=== PATIENT | male | born 1965 | race American Indian/Alaskan Native ===

== ENCOUNTER 2021-03-01 06:59 | Day surgery (SDC) | payer BC, MEDICARE ==
[2021-02-25 10:47] LABS: Hematocrit 41.2 % (35.5-45.6); Hemoglobin 13.2 gm/dl (11.8-15.2); Mean Corpuscular HGB Conc 32 % (32-34); Mean Corpuscular Volume 84 fl (84-94); Platelet Count 172 K/mm3 (140-440); Red Blood Count 4.91 M/mm3 (3.65-5.03); Red Cell Distribution Width 14.1 % (13.2-15.2)
[2021-02-25 11:07] LABS: Alanine Aminotransferase 10 units/L (7-56); Albumin 4.5 g/dL (3.9-5); Blood Urea Nitrogen 19 mg/dL (9-20); Calcium 9.3 mg/dL (8.4-10.2); Hemolysis Index 12
[2021-02-25 11:08] LABS: BUN/Creatinine Ratio 32
[~2021-03-01 06:59] MED LIST: LACTATED RINGERS 1,000 ML IV SCH; LIDOCAINE MPF (2%) 20 MG/1 ML VIAL 5 ML ONE; MIDAZOLAM 2 MG/2 ML INJ IV NR; ONDANSETRON 4 MG/2 ML INJ ONE; fentaNYL 100 MCG/2 ML INJ ONE; propofoL 200 MG/20 ML VIAL IV ONE
[2021-03-01] MEDS ORDERED: HYDROcodone/ACETAMINOPHEN 5-325 MG TAB PO PRN (07:32)
[2021-03-01] MEDS ORDERED: ONDANSETRON 4 MG/2 ML INJ IV PRN (07:32)
[2021-03-01] MEDS ORDERED: HYDROmorphone 1 MG/1 ML INJ IV PRN (07:32)
--- NOTE | 2021-03-01 07:32 | Anesthesia Day of Surgery ---
Anesthesia Day of Surgery - Day of Surgery Patient Examined: Yes Patient H&P Reviewed: Yes Patient is NPO: Yes
--- NOTE | 2021-03-01 07:32 | Anesthesia Consultation ---
Anesthesia Consult and Med Hx Date of service: 03/01/21 - Airway Anesthetic Teeth Evaluation: Good (significant overbite but denies loose teeth) ROM Head & Neck: Adequate Mental/Hyoid Distance: Adequate Mallampati Class: Class III Intubation Access Assessment: Possibly Difficult - Pre-Operative Health Status ASA Pre-Surgery Classification: ASA2 Proposed Anesthetic Plan: General - Pulmonary Hx Smoking: No Hx Respiratory Symptoms: No (significant hx scoliosis but denies associated lung disease) - Cardiovascular System Hx Hypertension: No Hx Heart Attack/AMI: No Hx Percutaneous Transluminal Coronary Angioplasty (PTCA): No - Central Nervous System CVA: No - Endocrine Hx Renal Disease: No Hx Liver Disease: No Hx Insulin Dependent Diabetes: No Hx Non-Insulin Dependent Diabetes: No Hx Thyroid Disease: No - Additional Comments Anesthesia Medical History Comments: No hx anesthetic complications.
[2021-03-01] MEDS ORDERED: ceFAZolin/Water 2 GM/20 ML 2 GM/20 ML SYRINGE IV NR (08:10)
[2021-03-01] MEDS ORDERED: ceFAZolin/Water 2 GM/20 ML 2 GM/20 ML SYRINGE IV ONE (08:18)
[2021-03-01] MEDS ORDERED: ePHEDrine SULFATE 50 MG/1 ML INJ ONE (08:53)
[2021-03-01] MEDS ORDERED: MANNITOL/SORBITOL SOLUTION 3,000 ML IRRIG.SOLN IR ONE (09:11)
--- NOTE | 2021-03-01 09:37 | Post Operative Note ---
Date of procedure: 03/01/21 Pre-op diagnosis: aur Post-op diagnosis: same Findings: alfaro bph Anesthesia: GETA Surgeon: DEIDRE ABDULLAHI Estimated blood loss: minimal Pathology: list (prostate) Specimen disposition: to lab Condition: stable Disposition: PACU
--- NOTE | 2021-03-01 09:39 | Discharge Summary ---
Short Stay Discharge Plan Activity: other (no straining ) Weight Bearing Status: Partial Weight Bearing Diet: low fat, low cholesterol, low salt Durable Medical Equipment Needed Upon Discharge: other (home with prajapati ) Follow up with: PRIMARY CARE, [Primary Care Provider] - 7 Days DEIDRE ABDULLAHI MD [Staff Physician] - 7 Days
[2021-03-01] MEDS ORDERED: hydrALAZINE 20 MG/1 ML INJ IV NR (09:53)
--- NOTE | 2021-03-01 10:38 | Operative Report ---
DATE OF SURGERY: 03/01/2021 PREOPERATIVE DIAGNOSES: Urinary retention, bladder outlet obstruction. POSTOPERATIVE DIAGNOSES: Urinary retention, bladder outlet obstruction. PROCEDURE: Cystoscopy, incision and resection of middle lobe of the prostate. SURGEON: Dr. Melendez. ANESTHESIA: General. FINDINGS: This is a gentleman with moderate trabeculation and high voiding pressure. He has been intermittent catheterizing himself, now presents for resection of this middle lobe and opening up the channel. DESCRIPTION OF PROCEDURE: The patient was brought to the operating room and placed on the operating table. Following induction of anesthesia, placed in lithotomy position, prepped and draped in usual sterile fashion. The bladder was moderately trabeculated as mentioned. Resection of the middle lobe was carried down to capsular fibers, being careful to preserve the trigone and orifices. This prostatic urethra was short a little bit of the lateral lobes were opened and this was not a big gland. The patient tolerated the procedure well. No significant complication and a 22, 3-way was clear brought to recovery in stable condition. TID: [id number] RECEIPT: [id number] PHIL/SOTO
--- NOTE | 2021-03-01 13:57 | Post Anesthesia Evaluation ---
- Post Anesthesia Evaluation Patient Participated: Yes Airway Patent: Yes Stable Respiratory Function: Yes Nausea/Vomiting: No Temp > 96.8F: Yes Pain Manageable: Yes Adequeate Hydration: Yes Anesthesia Complications: No
--- NOTE | 2021-03-01 14:41 | XRay Report ---
ABDOMEN 1 VIEW(S) INDICATION / CLINICAL INFORMATION: URINARY RETENTION. COMPARISON: None available. FINDINGS: 2 seconds of fluoroscopy time was provided by radiology during retrograde urography. Single view of t he abdomen is presented. Retrograde urography was not performed. The bowel gas pattern is unremarkabl e. No obvious pathologic calcifications are detected. Please correlate with the procedural report as needed. IMPRESSION: No significant abnormality. Signer Name: Jaime Angulo Jr, MD Signed: 03/01/2021 2:37 PM Workstation Name: [id number]
[2021-03-01 14:53] VITALS: BP 125/76
== END 2021-03-01 14:45 | disposition home or self-care (01) ==
LOC: OR 06:59
PROVIDERS: ATTEND Urology
DX: R33.9 Retention of urine, unspecified (principal); N40.1 Benign prostatic hyperplasia with lower urinary tract symptoms; Z20.822 Contact with and (suspected) exposure to COVID-19; Z79.899 Other long term (current) drug therapy; Z98.890 Other specified postprocedural states
CPT/HCPCS: 36415; 52601; 74018; 80053; 85027; 86850; 86900; 86901; 88305; J0360; J0690; J2405; J2704; J3010; J3490; J7120; U0003